=== PATIENT | male | born 1980 | race Two or more races ===

== ENCOUNTER 2017-01-10 12:04 | Day surgery (SDC) | payer BC ==
[~2017-01-10] VITALS: Ht 154.9 cm; Wt 55.5 kg
[2017-01-10 13:06] VITALS: BP 130/75; PULSE 60; RESP 16; TEMP 98.1; O2SAT 100
[2017-01-10] MEDS ORDERED: METO25TA6 PO (13:09)
[2017-01-10] MEDS ORDERED: SODIUM CHLORID 0.9% 500 ML INJ 500 ML IV SCH (13:15)
[2017-01-10] MEDS ORDERED: CHLORHEXIDINE GLUCONATE 2 % 1 PACK (2 CLOTHS) TOPICAL PRN (13:15)
[2017-01-10] MEDS ORDERED: LACTATED RINGER'S 1000 ML IV PRN (13:15)
[2017-01-10] MEDS ORDERED: LORazepam 1 MG TAB SL SCH (13:15)
[2017-01-10] MEDS ORDERED: DO NOT ADM ANY ANTICOAGULANT DRUGS PRN (13:15)
[2017-01-10] MEDS ORDERED: METOPROLOL TARTRATE 25 MG TAB PO PRN (13:15)
[2017-01-10] MEDS ORDERED: SODIUM CHLORID 0.9% 500 ML IV PRN (13:15)
[2017-01-10] MEDS ORDERED: POVIDONE IODINE 5% (ANTISEPSIS KIT) 4 APPLICATIONS EACH NARE PRN (13:15)
[2017-01-10] MEDS ORDERED: INSULIN HUMAN REGULAR 1,000 UNITS/10 ML VIAL SQ PRN (13:15)
[2017-01-10] MEDS ORDERED: PROPOFOL 200 MG/20 ML AMP IV ONE (13:17)
[2017-01-10 13:24] LABS: APTT (PATIENT) 28.8 SEC (24.3-30.1); PROTHROMBIN TIME - PATIENT 11.2 SEC (9.8-11.6)
[2017-01-10] MEDS ORDERED: HEPARIN-NS/PF INJ 500 ML ONE (13:28)
[2017-01-10 13:29] LABS: AUTOMATED NEUTROPHIL # 3.6 TH/MM3 (1.8-7.7); BASOPHIL % 0.4 % (0.0-2.0); EOSINOPHIL # 0.1 TH/MM3 (0-0.4); EOSINOPHIL % 1.4 % (0.0-4.0); HEMO FLAGS DIFF FINAL; LYMPH % 44.8 % (9.0-44.0); LYMPHOCYTE # 3.5 TH/MM3 (1.0-4.8); MEAN CELL VOLUME 86.1 FL (80.0-100.0); MEAN CORPUSCULAR HEMOGLOBIN 29.4 PG (27.0-34.0); MEAN CORPUSCULAR HGB CONC 34.1 % (32.0-36.0); MONO % 7.5 % (0.0-8.0); NEUT % 45.9 % (16.0-70.0); PLATELET COUNT 239 TH/MM3 (150-450); RED BLOOD COUNT 5.47 MIL/MM3 (4.50-5.90); RED CELL DISTRIBUTION WIDTH 13.4 % (11.6-17.2); WHITE BLOOD COUNT 7.9 TH/MM3 (4.0-11.0)
[2017-01-10 13:42] LABS: BICARBONATE 27.4 MEQ/L (21.0-32.0); POTASSIUM 3.7 MEQ/L (3.5-5.1)
--- NOTE | 2017-01-10 14:57 | CATHPROC ---
[facility] HIS Report Study Information Study Number Scheduled Start Study Start [id number] 01/10/2017 Jan 10 2017 12:49PM Referring Institution Admit Source Facility Department 1 Other [facility] - Director Software Development Physician and Clinical Staff Initial Roland Omer Biodiesel Production Associate Selena Christianson,MAXIME Biodiesel Production Associate Mary Dickinson,RT(R) TECH2 Other Anesthesia, CONCRETE INSPECTOR Recorder Anai Fritz,RN Recorder Grace Leung,SAI Scrub Chavez Saunders,RT(R) Procedures Performed Procedure RF Ablation Equipment Time Logging Supervisor Description Size Mfg Part Number Used/Scraped BIOSENSE PALM CATHETER, CELSIUS, 4MM, D [id number] 14:31 FR 7 Used INC. TYPE QUAD *[id number] 13:22 [employer] PACK, CCL CUSTOM * Used *[id number] 12:51 [employer],WARM AIR CCL * Used *[id number] 12:52 [employer] MED[employer] CATHETER, JSN, QUAD FR 5 Used *[id number] 12:52 [employer] MED[employer] CATHETER, JSN, QUAD FR 5 Used *[id number] 14:00 [employer] MEDICAL CATHETER, JSN, QUAD FR 5 Used *[id number] 14:00 [employer] MEDICAL CATHETER, JSN, QUAD FR 5 Used *[id number] 12:52 [employer] SHEATH, EPS, FR5 FAST CATH FR 5 Used *[id number] 12:52 [employer] SHEATH, EPS, FR5 FAST CATH FR 5 Used *[id number] 12:52 [employer] SHEATH, EPS, FR5 FAST CATH FR 5 Used *[id number] 12:52 [employer] SHEATH, EPS, FR6 FAST CATH FR 6 [id number] Used 13:22 [employer] SHEATH, EPS, FR8 FAST CATH FR 8 [id number] Used 14:31 [employer] SHEATH, EPS, FR8 FAST CATH FR 8 [id number] Used Medication Medication Total Dose (Bolus/Oral) Medication Total Dosage/Unit 1% XYLOCAINE 40 mL Medications (Bolus/Oral) Medication Time Given Dosage/Unit Administered By Reason 1% XYLOCAINE 01/10/2017 1:48:00 PM 20 mL Roland Sanders 20 mL 1% XYLOCAINE given by Roland Sanders in Left Groin via Subcutaneous. 1% XYLOCAINE 01/10/2017 1:49:30 PM 20 mL Roland Sanders 20 mL 1% XYLOCAINE given in lab by Roland Sanders in Right Groin via Subcutaneous. Initial Case Assessment Cardiovascular HR Rhythm NIBP 66 sr 114/61 Edema Present Skin color Skin None Normal Warm Dry Circulatory - Right Pulses Dorsalis Pedis Radial 2 2 Scale (0,1,2,3,4,d) Circulatory - Left Pulses Dorsalis Pedis Radial 2 2 Scale (0,1,2,3,4,d) Circulatory - Lower Extremities Color Lower Right Color Lower Left Normal Normal Neurological State Oriented to time-place- Alert Moves all extremities person Respiration - General Respiration Rate SpO2 (%) (B/min) 16 100 Final Case Assessment Cardiovascular HR Rhythm NIBP 82 sr 122/73 Edema Present Skin color Skin None Normal Warm Dry Circulatory - Right Pulses Dorsalis Pedis Radial 2 2 Scale (0,1,2,3,4,d) Circulatory - Left Pulses Dorsalis Pedis Radial 2 2 Scale (0,1,2,3,4,d) Circulatory - Lower Extremities Color Lower Right Color Lower Left Normal Normal Neurological State Oriented to time-place- Alert Moves all extremities person Respiration - General Respiration Rate SpO2 (%) (B/min) 16 100 Chronological Log Time Study Chronological Log Time Out. Correct patient, procedure, procedure equipment, site and side verified with physicia n present. Time 13:00:00 concurred by MD, individual staff and CONCRETE INSPECTOR. 13:17:03 Patient arrived via Bed. 13:17:09 Patient Name, D.O.B, / Armband Verified By R.N. 13:17:10 Consent signed by the physician and the patient and verified by the Director Software Development staff. 13:17:11 Pre-op and post- op instructions given; patient acknowledges understanding of instructions. 13:17:12 Verbal Stimulation=2 Physical Stimulation=2 Airway=2 Respiration=2 TOTAL=8. (0=absent, 1=li mited, 2=present) 13:17:32 Anesthesia at bedside. Assumes care of patient. Stuart 13:17:45 Patient has been NPO for More than 6Hrs. 13:18:03 Skin Breakdown-NONE PER PT 13:18:17 Patient Warmer Placed on the Table. 13:18:18 Disposable Defibrillator Pads Placed On Patient. 13:18:20 Nico Prominences Protected 13:18:25 A # 20 IV was noted in the Antecubital (left). Grade = 0 0.9ns kvo 13:19:02 A # 20 IV was noted in the Antecubital (right). Grade = 0 0.9ns kvo 13:19:12 History and physical on the chart. 13:19:16 Table restraints applied according to hospital policy Assessment: Initial Case, HR=66 BPM, Rhythm=sr, NBZA=633/61 mmhg, Edema=None, Color=Normal, Ski n = Warm, Dry Right Pulses: Michael Ped=2, Radial=2 Left Pulses: Michael Ped=2, Radial=2 13:19:28 Lower Right Extremities: Color=Normal Lower Left Extremities: Color=Normal Neurological: State=Alert, Ox3, PARKER Respiration: Resp=16 B/min, DnV3=229 % 13:28:00 Bilateral groins prepped with 2% chlorhexidine, and with a 3 min. waiting time. 13:36:03 Reference ECG taken 13:38:41 MD paged 13:46:28 MD arrived. Time Out. Correct patient, procedure, procedure equipment, site and side verified with physicia n present. Time 13:47:16 concurred by MD, individual staff and CONCRETE INSPECTOR. Time Out #2 - Consents verified, patient in correct position, all results are labled and displa yed, safety precautions 13:47:30 taken, antibiotics administered. Time out concurred by MD, individual staff and CONCRETE INSPECTOR in procedu re 13:47:55 Case Start 13:48:00 20 mL 1% XYLOCAINE given by Roland Sanders in Left Groin via Subcutaneous. 13:48:34 Vascular access was obtained in the Fem Vein (left). 13:48:39 Vascular access was obtained in the Fem Vein (left). 13:48:49 Vascular access was obtained in the Fem Vein (left). 13:48:50 Vascular access was obtained in the Fem Vein (left). 13:48:55 A SHEATH, EPS, FR5 FAST CATH FR 5 was advanced into the Fem Vein (left) using the Modified Seldinger technique. 13:49:15 A SHEATH, EPS, FR5 FAST CATH FR 5 was advanced into the Fem Vein (left) using the Modified Seldinger technique. 13:49:19 A SHEATH, EPS, FR5 FAST CATH FR 5 was advanced into the Fem Vein (left) using the Modified Seldinger technique. 13:49:30 20 mL 1% XYLOCAINE given in lab by Roland Sanders in Right Groin via Subcutaneous. 13:49:49 Vascular access was obtained in the Fem Vein (right). 13:49:53 A SHEATH, EPS, FR6 FAST CATH FR 6 was advanced into the Fem Vein (right) using the Modified Seldinger technique. A CATHETER, JSN, QUAD FR 5 was advanced vis Fem Vein (right) and placed in the HIS. Placement w as visually 13:51:33 confirmed under fluoroscopy. A CATHETER, JSN, QUAD FR 5 was advanced vis Groin (right) and placed in the HRA. Placement was visually confirmed 14:01:45 under fluoroscopy. A CATHETER, JSN, QUAD FR 5 was advanced vis Groin (right) and placed in the CS. Placement was v isually confirmed 14:03:39 under fluoroscopy. A CATHETER, JSN, QUAD FR 5 was advanced vis Groin (right) and placed in the RVA. Placement was visually confirmed 14:04:00 under fluoroscopy. 14:04:43 EPS in progress. 14:28:15 A SHEATH, EPS, FR8 FAST CATH FR 8 was advanced into the Fem Vein (right) using the Percutan eous technique. A CATHETER, CELSIUS, 4MM, D TYPE QUAD FR 7 was advanced vis Fem Vein (right) and placed in the HRA. Placement 14:32:44 was visually confirmed under fluoroscopy. 14:33:08 RF Ablation of the RA with a eps in progress. 14:44:10 EP still in progress. 14:49:59 DOCU called. Spoke to SAI Snow 14:50:28 Bedside Report will be given. 14:51:51 Catheter(s) removed without difficulty 14:52:00 Sheath(s) left in place, will be removed in Holding Area 14:52:08 Sterile dressing applied to site 14:52:12 No case complications noted. 14:53:02 Cine recording checked. Assessment: Final Case, HR=82 BPM, Rhythm=sr, IOHD=209/73 mmhg, Edema=None, Color=Normal, Skin = Warm, Dry Right Pulses: Michael Ped=2, Radial=2 Left Pulses: Michael Ped=2, Radial=2 14:55:28 Lower Right Extremities: Color=Normal Lower Left Extremities: Color=Normal Neurological: State=Alert, Ox3, PARKER Respiration: Resp=16 B/min, TwX1=523 % 14:56:19 Case End 14:59:04 Patient moved to stretcher End Study - Contrast Media Used In Study Contrast Total Opened (mL) Total Used (mL) Total Wasted (mL) Unspecified 0 0 0 End Study - Radiation Exposure Fluoro Time (minutes) 5.2 End Study - Patient Disposition Complications Transferred To Interventional Outcome No Telemetry Bed successful
[2017-01-10] MEDS ORDERED: LORazepam 2 MG/ML VIAL IV PRN (15:00)
[2017-01-10] MEDS ORDERED: BACITRACIN OINT 0.9 GM PKT TOP ONE (15:00)
[2017-01-10] MEDS ORDERED: ONDANSETRON HCL 4 MG/2 ML VIAL IV PRN (15:00)
[2017-01-10] MEDS ORDERED: LIDOCAINE HCL 1% 50 ML VIAL INFIL PRN (15:00)
[2017-01-10] MEDS ORDERED: METOCLOPRAMIDE HCL 10 MG/2 ML VIAL IV PRN (15:00)
[2017-01-10] MEDS ORDERED: ATROPINE SULFATE 1 MG/ML VIAL IV PRN (15:00)
[2017-01-10] MEDS ORDERED: SODIUM CHLOR 0.9% 250 ML INJ 250 ML IV PRN (15:00)
[2017-01-10] MEDS ORDERED: oxyCODONE/ACETAMINOPHEN 5 MG/325 MG TAB PO PRN ×2 (15:00)
[2017-01-10] MEDS ORDERED: MIDAZOLAM HCL 2 MG/2 ML VIAL ONE (15:09)
--- NOTE | 2017-01-10 15:40 | MA ---
cc: BRYAN SANDERS M.D. 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 INDICATION Mr. Alex Machado is a 36-year-old gentleman with recurrent episode of supraventricular tachyarrhythmia referred for electrophysiology study and ablation. The risks, the nature and the benefit of the procedure were clearly stated to him. The risks include pneumothorax, cardiac perforation, stroke, need for open heart surgery and even . The patient understood and agreed to proceed. DETAILS OF PROCEDURE After written informed consent was obtained, the patient was brought to the EP lab where he was prepped and draped in the usual sterile fashion. Conscious sedation was initiated and throughout the procedure by the anesthesiologist. Once sedation was verified, the right and left inguinal area was anesthetized with 2% Xylocaine. Using modified Seldinger technique, the left femoral vein was cannulated on three occasion and three guidewires were advanced. Over the wires three 5-Citizen [place] Hemaquets were advanced. Then the right femoral vein was cannulated on one occasion and one guidewire was advanced. Over the wire a 6-Citizen [place] Hemaquet was advanced. Then under fluoroscopic guidance through the 5 and 6-Citizen [place] Hemaquets, four 5-Citizen [place] Julia curved quadripolar electrophysiology catheters were advanced and positioned on the His, upper right atrium, coronary sinus and right ventricular apex. Basic intervals were measured. They were within normal limits. At this point atrial pacing protocol was performed. Atrial pacing protocol consists of incremental atrial pacing as well as programmed stimulation with 110 cycle length and up to one extrastimuli delivered. During atrial pacing protocol atrial fibrillation was induced. It was self-terminated. Then again atrial pacing protocol was repeated, again atrial fibrillation was induced. Then atrial pacing protocol was performed. Supraventricular tachyarrhythmia of intracardiac characteristic of AV riki reentrant tachycardia was induced. It was paced terminated. Then Isuprel infusion was initiated at 4 mcg. Ventricular pacing protocol was performed. There was VA conduction. It was concentric. Then atrial pacing protocol was repeated again. Supraventricular tachyarrhythmia of intracardiac characteristic of AV riki reentrant tachycardia was induced. Subsequently the patient went into atrial fibrillation. At that point Isuprel was discontinued. I decided to proceed with slow pathway ablation. The right femoral vein was cannulated on one occasion and a guidewire was advanced. Over the wire an 8-Citizen Of [place] Hemaquet was advanced. Then through the 8-Citizen [place] Hemaquet, a Cordis-Putnam D-curve 4 mm mapping and radiofrequency ablation catheter was advanced. Using [employer] Mapping System a three-dimensional configuration of the right atrium was obtained. Then the catheter was placed at the tricuspid valve annulus. Radiofrequency energy was delivered. The patient went in multiple junctional rhythm. Further burn was delivered in the area. Then atrial pacing protocol was repeated on Isuprel and at baseline no supraventricular tachyarrhythmia was induced. At that point the procedure was complete. All catheters were removed. The patient is going to be transferred to the recovery room. No incident report. The patient tolerated the procedure. Blood loss minimal. FINDINGS 1. Electrocardiogram: At baseline the patient was in sinus. Post-procedure electrocardiogram was unchanged. 2. Basic interval: Basic cycle length was 1020 milliseconds. AH at 82 and HV at 40 milliseconds. 3. Atrial pacing protocol: Wenckebach post ablation was around 400 milliseconds. 4. Ventricular pacing protocol: There was VA conduction. It was concentric. 5. Tachyarrhythmia: AV riki reentrant tachycardia was induced. The pathway was mapped and ablated. Ablation was successful. CONCLUSIONS Status electrophysiology study, mapping and radiofrequency ablation of AV riki reentrant tachycardia. COMMENT/RECOMMENDATION The gentleman went on multiple occasions into atrial fibrillation, some of them were preceded by AV riki reentrant tachycardia. I am not sure if the AV riki reentrant tachycardia is the culprit or is an independent arrhythmia. At this point my recommendation is observe the gentleman. If he has more palpitations then atrial fibrillation ablation will be considered. Anticoagulation will be initiated. I will discuss with the gentleman again for further decision about the management. Bryan Sanders MD HS/BT /3:04 PM /3:30 PM
--- NOTE | 2017-01-10 18:11 | EKG ---
Date Performed: 01/10/2017 Time Performed: 13:00:30 PTAGE: 36 years EKG: Sinus rhythm . Normal ECG NO PREVIOUS TRACING DOCTOR: Dylan Peralta Interpretating Date/Time 01/10/2017 18:10:06
[2017-01-10 21:00] VITALS: BP 104/58; PULSE 59; PULSE 67; RESP 16; TEMP 98.7; O2SAT 99
[2017-01-10 22:00] VITALS: PULSE 60
[2017-01-10 23:00] VITALS: PULSE 54
[2017-01-10 23:30] VITALS: BP 98/57; PULSE 57; RESP 16; TEMP 98.5; O2SAT 98
[2017-01-11] VITALS (11 sets, daily range): BP systolic 105–114; BP diastolic 62–65; PULSE 48–70; RESP 16–18; TEMP 98.2–98.6; O2SAT 97–99
--- NOTE | 2017-01-11 07:49 | EKG ---
Date Performed: 01/11/2017 Time Performed: 05:46:10 PTAGE: 36 years EKG: Sinus bradycardia with sinus arrhythmia Normal ECG except for rate NO SIGNIFICANT CHANGE FR OM PRIOR ELECTROCARDIOGRAM. PREVIOUS TRACING : 01/10/2017 13.00 DOCTOR: Dylan Peralta Interpretating Date/Time 01/11/2017 07:48:41
[2017-01-11] MEDS ORDERED: ASPI81TA11 PO (07:57)
--- NOTE | 2017-01-11 08:05 | PD.CARD.PN ---
Subjective Subjective Remarks Feels okay. Objective Medications Current Medications Medications (Trade) Dose Ordered Sig/Cheri Route Start Time Stop Time Status Last Admin Lactated Ringer's 1,000 ml @ 30 mls/hr Q24H PRN IV 01/10/17 13:15 01/13/17 13:14 Sodium Chloride 500 ml @ 30 mls/hr [id number] PRN IV 01/10/17 13:15 01/13/17 13:14 (NS 500 ml Inj) 500 ml @ 30 mls/hr [id number] IV 01/10/17 13:15 (Percocet 5-325 Mg) 1 tab Q4H PRN PO 01/10/17 15:00 (Percocet 5-325 Mg) 2 tab Q4H PRN PO 01/10/17 15:00 (Ativan Inj) 0.5 mg UNSCH PRN IV 01/10/17 15:00 01/11/17 14:59 Atropine Sulfate 0.5 mg 0.5 mg UNSCH PRN IV 01/10/17 15:00 (NS 250 ml Inj) 250 ml @ 500 mls/hr ONCE PRN IV 01/10/17 15:00 01/11/17 14:59 (Reglan Inj) 10 mg Q4H PRN IV 01/10/17 15:00 (Zofran Inj) 4 mg Q4H PRN IV 01/10/17 15:00 (Xylocaine 1% Inj (50 ml)) 10 ml UNSCH PRN INFIL 01/10/17 15:00 01/11/17 14:59 (Toprol Xl) 25 mg DAILY PO 01/11/17 09:00 (Ecotrin Ec) 81 mg DAILY PO 01/11/17 09:00 UNV Vital Signs / I&O Vital Signs Date Time Temp Pulse Resp B/P Pulse Ox O2 Delivery O2 Flow Rate FiO2 01/11/17 06:00 50 01/11/17 05:00 52 01/11/17 04:00 70 01/11/17 03:40 98.2 48 16 114/62 97 01/11/17 03:00 55 01/11/17 02:00 49 01/11/17 01:00 53 01/11/17 00:00 51 01/10/17 23:30 98.5 57 16 98/57 98 01/10/17 23:00 54 01/10/17 22:00 60 01/10/17 21:00 98.7 59 16 104/58 99 01/10/17 21:00 67 01/10/17 13:06 98.1 60 16 130/75 100 I/O 01/10/17 01/10/17 01/10/17 01/11/17 01/11/17 01/11/17 07:00 15:00 23:00 07:00 15:00 23:00 Intake Total 440 ml Output Total 450 ml Balance -10 ml Intake Oral 440 ml Output Urine Total 450 ml # Bowel Movements 0 Physical Exam GENERAL: Well-nourished, well-developed patient. SKIN: Warm and dry. Groin sites soft with no bleeding or bruising. HEAD: Normocephalic. EYES: No scleral icterus. No injection or drainage. NECK: Supple, trachea midline. No JVD or lymphadenopathy. CARDIOVASCULAR: Regular rate and rhythm without murmurs, gallops, or rubs. RESPIRATORY: Breath sounds equal bilaterally. No accessory muscle use. GASTROINTESTINAL: Abdomen soft, non-tender, nondistended. EXTREMITIES: No cyanosis, or edema. NEUROLOGICAL: Awake, alert, and oriented x 3. Non-focal. Laboratory Laboratory Tests Test 01/10/17 12:50 White Blood Count 7.9 TH/MM3 Red Blood Count 5.47 MIL/MM3 Hemoglobin 16.0 GM/DL Hematocrit 47.0 % Mean Corpuscular Volume 86.1 FL Mean Corpuscular Hemoglobin 29.4 PG Mean Corpuscular Hemoglobin 34.1 % Concent Red Cell Distribution Width 13.4 % Platelet Count 239 TH/MM3 Mean Platelet Volume 7.9 FL Neutrophils (%) (Auto) 45.9 % Lymphocytes (%) (Auto) 44.8 % Monocytes (%) (Auto) 7.5 % Eosinophils (%) (Auto) 1.4 % Basophils (%) (Auto) 0.4 % Neutrophils # (Auto) 3.6 TH/MM3 Lymphocytes # (Auto) 3.5 TH/MM3 Monocytes # (Auto) 0.6 TH/MM3 Eosinophils # (Auto) 0.1 TH/MM3 Basophils # (Auto) 0.0 TH/MM3 CBC Comment DIFF FINAL Differential Comment Prothrombin Time 11.2 SEC Prothromb Time International 1.0 RATIO Ratio Activated Partial 28.8 SEC Thromboplast Time Sodium Level 139 MEQ/L Potassium Level 3.7 MEQ/L Chloride Level 103 MEQ/L Carbon Dioxide Level 27.4 MEQ/L Anion Gap 9 MEQ/L Blood Urea Nitrogen 15 MG/DL Creatinine 0.92 MG/DL Estimat Glomerular Filtration 94 ML/MIN Rate Random Glucose 80 MG/DL Calcium Level 9.0 MG/DL Blood Type O POSITIVE Antibody Screen NEGATIVE Blood Bank Comment Assessment and Plan Problem List: (1) AVNRT (AV riki re-entry tachycardia) Assessment and Plan: AV node reentrant tachycardia was induced during EP study and slow pathway ablated. Short bursts of self terminated atrial fib were also intermittently induced during EP study. (2) S/P ablation of accessory bypass tract Assessment and Plan: AV node reentrant tachycardia ablated. Patient will be started on aspirin 81 mg by mouth daily and monitored for recurrent palpitations. During EP study atrial fibrillation in short bursts which self terminated were induced. Per my discussion with Dr. Sanders, patient will be monitored for recurrent palpitations and if necessary will undergo atrial fibrillation ablation at a later date. Assessment and Plan Discussed with patient, RN, Dr. Sanders. Myriam Livingston Jan 11, 2017 08:04
[2017-01-11] MEDS ORDERED: METOPROLOL SUCCINATE 25 MG EXTENDED RELEASE TAB PO SCH (09:00)
[2017-01-11] MEDS ORDERED: ASPIRIN EC 81 MG TABEC PO SCH (09:00)
== END 2017-01-11 10:03 | disposition home or self-care (01) ==
LOC: HDOC 12:04 → HDIC 12:05 → HCIN 20:10 → HDOC 01-11 10:03
PROVIDERS: ATTEND Internal Medicine Interventional Cardiology
DX: I47.1 Supraventricular tachycardia (principal); I48.91 Unspecified atrial fibrillation; I45.6 Pre-excitation syndrome; R06.00 Dyspnea, unspecified; Z01.810 Encounter for preprocedural cardiovascular examination; Z01.818 Encounter for other preprocedural examination
CPT/HCPCS: 80048; 85025; 85610; 85730; 86850; 86900; 86901; 93005; 93613; 93623; 93653; C1730; C1732; C2630; J1644; J2250; J3010